=== PATIENT | male | born 1980 | race Caucasian/White ===

== ENCOUNTER 2017-08-02 17:18 | Emergency (ER) | payer SELFPAY ==
[2017-08-02] MEDS ORDERED: Water For Inject, Bacteriostat 30 ML ONE (18:24)
[2017-08-02] MEDS ORDERED: methylPREDNISolone Sod Succ/PF 125 MG/2 ML VIAL ONE (18:24)
[2017-08-02] MEDS ORDERED: Ketorolac Tromethamine 60 MG/2 ML VIAL ONE (18:57)
[2017-08-02] MEDS ORDERED: Oxymetazoline HCl 0.05% ( 15 ML ) ONE (18:57)
--- NOTE | 2017-08-02 19:33 | RAD ---
CHEST TWO VIEWS: History: Dyspnea. Comparison: 05-23-16 FINDINGS: Cardiac silhouette and pulmonary vasculature are unremarkable. Mediastinum is midline. Lungs remain h yperinflated. There is no confluent airspace consolidation, pneumothorax, or pleural fluid evident. IMPRESSION: COPD. POS: STEPHEN
== END 2017-08-02 19:35 | disposition home or self-care (01) ==
LOC: ERS 17:18
DX: J45.901 Unspecified asthma with (acute) exacerbation (principal); J44.9 Chronic obstructive pulmonary disease, unspecified; I10 Essential (primary) hypertension; F17.210 Nicotine dependence, cigarettes, uncomplicated
CPT/HCPCS: 71020; 87081; 87430; 93005; 94640; 96372; J1885; J2930; J7620

== ENCOUNTER 2020-10-11 09:52 | Inpatient (IN) | payer MEDICARE, MEDICAID ==
[2020-10-11] MEDS ORDERED: Morphine 4 MG/ML VIAL ONE ×2 (10:48→12:22)
--- NOTE | 2020-10-11 11:21 | RAD ---
XR Knee Rt 4 View STANDARD HISTORY: Fall, right knee pain FINDINGS: No fracture or dislocation is identified.
--- NOTE | 2020-10-11 11:22 | RAD ---
Exam:Left foot 3 HISTORY: Pain. Fall. COMPARISON: 08/10/2015 FINDINGS: Lisfranc alignment is maintained. Preserved joint spaces. No fracture, cortical irregularit y or periosteal reaction. There is soft tissue swelling. IMPRESSION: Soft tissue swelling, without evidence of fracture.
--- NOTE | 2020-10-11 11:22 | RAD ---
Exam:3 views right ankle HISTORY: Fall. Pain. COMPARISON: None FINDINGS: Comminuted distal fibula fracture. Widening of the medial joint space. Subluxation of the t alotibial articulation. IMPRESSION: Fracture and subluxation as above
--- NOTE | 2020-10-11 11:23 | RAD ---
Exam:Right tibia fibula 2 views HISTORY: Fall. Pain. COMPARISON: None FINDINGS: Comminuted distal fibular fracture. Additional fractures are not appreciated. IMPRESSION: Fracture
[2020-10-11] MEDS ORDERED: Ketorolac Tromethamine 30 MG/ML VIAL ONE (12:43)
[2020-10-11] MEDS ORDERED: Clindamycin/D5W 900 MG in Premix Bag 1 BAG IVPB SCH (12:45)
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
--- NOTE | 2020-10-11 13:03 | RAD ---
Portable frontal chest radiograph: 10/11/2020 COMPARISON: 08/15/2016 HISTORY: Recent fall, trauma, pain FINDINGS: Lungs are clear. Heart and mediastinal contours appear within normal limits. Detailed asses sment is limited secondary to body habitus IMPRESSION: No acute findings.
--- NOTE | 2020-10-11 13:07 | RAD ---
EXAM: 2 views of the left ankle HISTORY: Distal fibular fracture COMPARISON: 10/11/2020 FINDINGS: 2 views of the left ankle shows a fracture of the distal fibula. An overlying fiberglass sp lint obscures fine bony and soft tissue detail. IMPRESSION: Stable distal fibular fracture
[2020-10-11 13:21] LABS: #Eosinphils 0.1 thou/uL (0.0-0.7); #Lymphocytes 0.8 thou/uL (1.20-3.40); #Monocytes 0.8 thou/uL (0.11-0.59); #Neutrophils 7.6 thou/uL (1.40-6.50); %Basophils 0.1 % (0.0-1.0); %Eosinophils 1.5 % (0.0-10.0); %Lymphocytes 8.4 % (21.0-51.0); %Monocytes 8.2 % (0.0-10.0); %Neutrophils 81.8 % (42.0-75.0); Hemoglobin 11.7 g/dL (14.0-18.0); Mean Corpuscular HGB CONC 31.9 g/dL (32.0-36.0); Mean Corpuscular Hemoglobin 27.6 pg (27.0-31.0); Mean Corpuscular Volume 86.6 fL (78.0-98.0); Mean Platelet Volume 7.6 fL (7.4-10.4); Platelet Count 283 thou/uL (130-400); RBC Distribution Width 16.7 % (11.5-14.5); Red Blood Cell (RBC) Count 4.23 mill/uL (4.70-6.10); White Blood Cell (WBC) Count 9.2 thou/uL (4.8-10.8)
[2020-10-11 13:31] LABS: Prothrombin Time 13.7 sec (12.0-14.7)
[2020-10-11 13:32] LABS: PTT 34.8 sec (22.9-36.1)
[2020-10-11 13:43] LABS: ALT (SGPT) 46 U/L (8-55); AST (SGOT) 71 U/L (5-34); Albumin 3.8 g/dL (3.5-5.0); Alkaline Phosphatase 71 U/L (40-110); Anion Gap 14 mmol/L (10-20); BUN (Urea Nitrogen) 12 mg/dL (8.9-20.6); Bilirubin, Total 0.6 mg/dL (0.2-1.2); CK (CPK) 3149 U/L (30-200); Calc. Creatinine Clearance 0 mL/min (70-130); Calcium 8.8 mg/dL (7.8-10.44); Carbon Dioxide 31 mmol/L (22-29); Chloride 91 mmol/L (98-107); Globulin 3.2 g/dL (2.4-3.5); Glucose 101 mg/dL (70-105); Potassium 4.5 mmol/L (3.5-5.1); Sodium 131 mmol/L (136-145)
[2020-10-11] MEDS ORDERED: Dextrose 50% Abboject 50 ML SYRINGE SLOW IVP PRN (14:50)
[2020-10-11] MEDS ORDERED: Ondansetron PF 4 MG/2 ML Vial IVP PRN (14:50)
[2020-10-11] MEDS ORDERED: Dextrose 5% in Water 1,000 ML IV PRN (14:50)
[2020-10-11] MEDS: Acetaminophen 500 MG TAB PO SCH (17:49)
[2020-10-11] MEDS: Cyclobenzaprine 10 MG TAB PO PRN (17:49)
[2020-10-11] MEDS: traMADol HCl 50 MG TAB PO PRN (17:51)
[2020-10-11 18:52] VITALS: BMI 66.4
[2020-10-11] MEDS: Gabapentin 300 MG CAP PO SCH ×2 (19:35→21:17)
[2020-10-11] MEDS: Sodium Chloride 0.9% 1,000 ML IV SCH ×2 (21:15→22:23)
[2020-10-11] MEDS: Famotidine 20 MG TAB PO SCH (21:16)
[2020-10-11] MEDS: Ibuprofen 200 MG TAB PO SCH (21:16)
[2020-10-11] MEDS: Senokot S 8.6-50 MG TAB PO SCH (21:17)
[2020-10-11 22:03] LABS: Bacteria/HPF 4+ HPF (None Seen); Bilirubin Negative (Negative); Blood, Urine 3+ (Negative); Clarity Extra Turbid (Clear); Glucose, Urine (Dipstick) Normal (Negative); Ketone, Urine 40 mg/dL (Negative); Leukocyte 500 Leu/uL (Negative); Nitrite Negative (Negative); Protein, Urine (Dipstick) 70 mg/dL (Neg-Trace); RBC/HPF Greater than 50 HPF (0-3); Specific Gravity, Urine 1.033 (1.002-1.036); Squamous Epithelial None Seen HPF (0-3); WBC/HPF Greater than 50 HPF (0-3)
--- NOTE | 2020-10-11 22:34 | HP ---
TRAUMA SURGEON: Dr. Brown. CONSULTING PHYSICIAN: Dr. Dominguez. HISTORY OF PRESENT ILLNESS: The patient is a 40-year-old male, who presented to the emergency department via EMS after mechanical fall. The patient reports during night, he woke up to go to the restroom and did not use his walker, subsequently he fell. He is complaining of right lower extremity pain, who was evaluated by Orthopedic Surgery, who recommends surgical fixation of the right distal fibular fracture/ankle fracture. Upon my evaluation, the patient was reporting he is short of breath. He does have COPD and is on 3 L nasal cannula at home. He is 204 kg and typically has issues getting around that is why he uses a walker. He lives at home with his . He denies chest pain, nausea, vomiting, cough, or diarrhea. REVIEW OF SYSTEMS: All additional 10-point review of systems is negative except as indicated above. PAST MEDICAL HISTORY: KACIE; COPD, on home O2 at 3 L; hypertension; and previous pinched nerve in back. PAST SURGICAL HISTORY: Hernia repair. SOCIAL HISTORY: The patient denies drug or alcohol use. He smokes a half a pack of cigarettes a day. MEDICATIONS: The patient not aware of his medications. We will call the pharmacy to complete a med rec. On evaluation of previous records, the patient is on, 1. Symbicort. 2. Lisinopril/hydrochlorothiazide. 3. Lyrica. 4. Motrin. 5. Tylenol No. 3. 6. Fluconazole. 7. Wellbutrin. 8. Carvedilol. 9. Lipitor. ALLERGIES: PENICILLIN AND SULFA DRUGS. OBJECTIVE: VITAL SIGNS: Temperature 98.6, pulse 96, respirations 22, oxygen saturation 99% on room air, and blood pressure 129/73. PRIMARY SURVEY: Airway intact. Adequate breath sounds bilaterally. 2+ pulses in bilateral radials, femorals, and DPs. GCS 15. Gross motor and sensation are intact. No lacerations, bruising, or external bleeding. SECONDARY SURVEY: HEAD: Normocephalic. No gross palpable skull deformities or tenderness. EYES: Pupils 3-2, equal, round, reactive to light bilaterally. ENT: No hemotympanum. No epistaxis. No septal hematoma. Midface stable to manipulation. No blood in the oropharynx. Dentition is intact. C-SPINE: No step-offs or deformities. Nontender. C-collar not in place. CHEST: Nontender. No abrasions. No ecchymosis noted. Equal chest movement. ABDOMEN: Soft, nontender, nondistended. PELVIS: Stable to palpation. Nontender. RECTAL: Deferred. GENITOURINARY: Deferred. EXTREMITIES: The patient has a splint to the right lower extremity that is clean, dry, and intact. No signs of bleeding. 2+ pulses in bilateral radials, femorals, and DPs. BACK/SPINE: No signs of trauma. 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 Gross normal sensation x4 extremities. LABORATORY FINDINGS: White count 9.2, hemoglobin 11.7, hematocrit 36.6, platelets 283. INR 1.0, sodium 131, potassium 4.5, chloride 91, bicarb 31, BUN 12, creatinine 0.74, glucose 101, total bilirubin 0.6, AST 71, ALT 46, alkaline phosphatase 71. CK 3149. DIAGNOSTIC FINDINGS: X-ray of the right ankle demonstrates fracture and subluxation of the comminuted distal fibular fracture. X-ray of the right knee demonstrates no fracture or dislocation is identified. X-ray of the right foot demonstrates soft tissue swelling without evidence of fracture. X-ray of the right tib-fib demonstrates comminuted displaced fibular fracture. Chest x-ray demonstrates no acute findings. X-ray of the left ankle demonstrates stable distal fibular fracture. ASSESSMENT: 1. Status post mechanical fall from standing. 2. Right distal fibular fracture. 3. Rhabdomyolysis. 4. History of chronic obstructive pulmonary disease, hypertension, and obstructive sleep apnea. PLAN: The patient is admitted to the Trauma Service. Orthopedic Surgery has evaluated the patient and plans to take the patient to the OR tomorrow. In the emergency department, I have asked the emergency provider to give him a nebulizer. He will be admitted to [facility]. He will receive IV fluid hydration and have a regular diet. We will closely monitor his urinary output and repeat a CK in the morning. Postoperatively, the patient will likely need placement in acute rehab facility. Job ID: [id number]
[2020-10-12] MEDS: Acetaminophen 500 MG TAB PO SCH ×5 (00:01→23:07)
[2020-10-12] MEDS: traMADol HCl 50 MG TAB PO PRN ×2 (00:02→19:23)
[2020-10-12] MEDS: Morphine 4 MG/ML VIAL SLOW IVP PRN ×4 (00:42→23:44)
[2020-10-12 05:14] LABS: #Basophils 0.1 thou/uL (0.0-0.2); #Eosinphils 0.2 thou/uL (0.0-0.7); #Lymphocytes 1.1 thou/uL (1.20-3.40); #Monocytes 0.9 thou/uL (0.11-0.59); #Neutrophils 5.9 thou/uL (1.40-6.50); %Eosinophils 2.1 % (0.0-10.0); %Lymphocytes 13.5 % (21.0-51.0); %Monocytes 11.4 % (0.0-10.0); %Neutrophils 72.1 % (42.0-75.0); Mean Corpuscular HGB CONC 31.9 g/dL (32.0-36.0); Mean Corpuscular Hemoglobin 27.3 pg (27.0-31.0); Mean Corpuscular Volume 85.8 fL (78.0-98.0); Mean Platelet Volume 7.8 fL (7.4-10.4); Platelet Count 243 thou/uL (130-400); RBC Distribution Width 16.8 % (11.5-14.5); Red Blood Cell (RBC) Count 4.01 mill/uL (4.70-6.10); White Blood Cell (WBC) Count 8.2 thou/uL (4.8-10.8)
[2020-10-12] MEDS: Ibuprofen 200 MG TAB PO SCH ×3 (05:20→23:43)
[2020-10-12 05:41] LABS: Anion Gap 13 mmol/L (10-20); BUN (Urea Nitrogen) 13 mg/dL (8.9-20.6); CK (CPK) 2528 U/L (30-200); Calc. Creatinine Clearance 397 mL/min (70-130); Calcium 8.6 mg/dL (7.8-10.44); Carbon Dioxide 33 mmol/L (22-29); Chloride 93 mmol/L (98-107); Glucose 81 mg/dL (70-105); Magnesium 1.9 mg/dL (1.6-2.6); Phosphorus 3.4 mg/dL (2.3-4.7); Potassium 4.6 mmol/L (3.5-5.1); Sodium 134 mmol/L (136-145)
[2020-10-12] MEDS: Sodium Chloride 0.9% 1,000 ML IV SCH ×3 (06:02→15:51)
[2020-10-12] MEDS ORDERED: FLU VACC QS2020-21(6MOS UP)/PF 60 MCG/0.5 ML SYRINGE IM ONE (09:00)
[2020-10-12 09:48] LABS: SARS-CoV-2 PCR by NAA Not Detected (NotDetected)
[2020-10-12] MEDS: Famotidine 20 MG TAB PO SCH ×2 (10:16→23:06)
[2020-10-12] MEDS: Senokot S 8.6-50 MG TAB PO SCH ×2 (10:17→23:07)
[2020-10-12] MEDS: Polyethylene Glycol 3350 17 GM Packet PO SCH (10:17)
[2020-10-12] MEDS: Gabapentin 300 MG CAP PO SCH ×3 (10:17→23:06)
[2020-10-12] MEDS ORDERED: Succinylcholine 200 MG/10 ml SYRINGE FS ONE (10:54)
[2020-10-12] MEDS ORDERED: Dexamethasone 20 MG/5 ML VIAL ONE (10:54)
[2020-10-12] MEDS ORDERED: PROPOFOL 200 MG/20 ML VIAL ONE (10:54)
[2020-10-12] MEDS ORDERED: Lidocaine 1% PF 5 ML VIAL ONE (10:54)
[2020-10-12] MEDS ORDERED: Bupivacaine HCl 0.5%/Epinephrine 1:200,000/PF 30 ml Vial ONE (10:54)
[2020-10-12] MEDS ORDERED: Ondansetron PF 4 MG/2 ML Vial ONE (10:54)
[2020-10-12] MEDS ORDERED: Rocuronium Bromide 10 MG/ML (10ML VIAL) ONE (10:54)
[2020-10-12] MEDS ORDERED: Clindamycin/D5W 900 mg/50 ml Premix Bag ONE (11:47)
[2020-10-12] MEDS ORDERED: Sodium Chloride 0.9% 0 ML ONE (11:47)
[2020-10-12] MEDS ORDERED: Fentanyl 100 MCG/2 ML VIAL ONE (12:15)
[2020-10-12] MEDS ORDERED: Albuterol Sulfate HFA (OR ONLY) ONE (12:43)
[2020-10-12] MEDS ORDERED: EPINEPHrine 1 MG/10 ML Abboject SYRINGE ONE (12:55)
[2020-10-12] MEDS ORDERED: SUGAMMADEX SODIUM 500 MG/5 ML VIAL ONE (13:16)
[2020-10-12] MEDS ORDERED: Propofol 1,000 MG/100 ML VIAL IV ONE (13:35)
--- NOTE | 2020-10-12 13:58 | RAD ---
RIGHT ANKLE THREE VIEW: 10/12/20 HISTORY: ORIF of the fibula. COMPARISON: Right ankle radiograph prior day. FINDINGS: Two cortical syndesmotic screws to the distal fibula. IMPRESSION: Satisfactory postoperative appearance. POS: OFF
[2020-10-12 14:06] LABS: Actual Bicarbonate (HCO3a) 28.6 mEq/L (22-28); Base Excess (BEa) 1.5 mEq/L (-2.0 to +3.0); CO2 Tension 57.5 mmHg (35.0-45.0); Calcium, Ionized (arterial) 1.11 mmol/L (1.12-1.30); Carboxyhemoglobin (COHb) 0.9 gm% (0.0-3.0); Potassium - ABG Lab 4.28 mmol/L (3.70-5.30); pH, Arterial 7.31 (7.35-7.45)
[2020-10-12 14:17] LABS: ALV-art Gradient 139.325 mmHg (0-20); Puncture Site RRA
[2020-10-12] MEDS ORDERED: hydrALAZINE 20 MG/ML VIAL ONE ×2 (14:18→17:42)
--- NOTE | 2020-10-12 14:21 | RAD ---
CHEST ONE VIEW: 10/12/20 HISTORY: Endotracheal tube tip placement. COMPARISON: Radiograph prior day. FINDINGS: Severely poor penetration. Endotracheal tube tip is seen to the level of the clavicles and just below possibly above the nette 2.8 cm. Heart size is enlarged. Mild pulmonary venous congestion. IMPRESSION: Underpenetrated exam. Endotracheal tube above the nette possibly 2.8 cm. A repeat exam is recommende d with better penetration. POS: OFF
[2020-10-12] MEDS ORDERED: Labetalol HCl 100 MG/20 ML VIAL ONE (15:01)
[2020-10-12] MEDS ORDERED: Labetalol HCl 100 MG/20 ML VIAL SLOW IVP PRN (15:28)
[2020-10-12] MEDS ORDERED: hydrALAZINE 20 MG/ML VIAL SLOW IVP PRN (15:29)
--- NOTE | 2020-10-12 16:05 | OP ---
DATE OF PROCEDURE: 10/12/2020 PREOPERATIVE DIAGNOSIS: Right ankle distal fibula fracture with syndesmotic disruption. POSTOPERATIVE DIAGNOSIS: Right ankle distal fibula fracture with syndesmotic disruption. PROCEDURE PERFORMED: Closed reduction and syndesmotic screw stabilization of ankle mortise. ANESTHESIA: General. RADIOLOGICAL EQUIPMENT SPECIALIST: Rubio Cavazos PA-C TOURNIQUET TIME: Zero. IMPLANTS: Synthes 4.0-mm cortical screws x2. COMPLICATIONS: None. DRAINS: None. SPECIMENS: None. OUTCOME: Satisfactory. INDICATIONS: The patient is a 40-year-old gentleman with morbid obesity, who sustained a fall, fracturing his distal fibular shaft and disrupting the ankle mortise. The patient now taken to the operating room for surgical stabilization of this fracture. The patient is in extremely poor health and does have morbid obesity. I discussed with the patient risks and benefits. He appears to understand and does wish to proceed. DESCRIPTION OF PROCEDURE: After the induction of general anesthesia, the patient was positioned supine on the OR table, but at this point was found to have extreme difficulty ventilating the patient. My anesthesiologist was very concerned regarding this inability to ventilate the patient easily. With further care from the anesthesiologist and anesthesia team, the patient's breathing did stabilize and the oxygenation was able to be pursued in a more normal fashion. However, given this somewhat tenuous pulmonary status, the surgery was slightly altered and it was decided not to proceed with plating of the fibula, but rather just stabilization of the mortise so as to get the patient out of the operating room as quickly as possible. As such, a sterile prep and drape was performed of the right lower extremity. Next, a small incision was made over the medial malleolus and a second incision made laterally over the lateral malleolus. A large bone tenaculum was then used to reduce the ankle mortise by my assistant office manager. This was checked on both AP, mortise, and lateral x-rays. Once reduced, and while my assistant office manager maintained reduction of the fracture, a 3rd small incision was made laterally just proximal to the first and then a drill passed through both cortices of the fibula as well as both cortices of the distal tibia. Measurement was taken and then appropriate length 4.0-mm cortical screw was passed across to the fibula into the tibia, getting good stabilization of the ankle mortise. The bone tenaculum was then removed and a 2nd screw placed at this distal lateral incision in identical fashion. At the completion of this, AP, lateral, and mortise images showed an anatomically reduced ankle mortise and a fibular shaft fracture that actually was near anatomically aligned as well. As such, it was opted to stop the procedure at this point. The 3 small stab wounds were irrigated with bulb syringe, then closed with janice. Xeroform gauze, Webril, and posterior fiberglass splint was then applied to the ankle and the patient was transferred to recovery room while still on a ventilator. Job ID: [id number] MTDD
[2020-10-12] MEDS ORDERED: Morphine 4 MG/ML VIAL ONE ×2 (17:13→23:42)
[2020-10-12] MEDS: hydrALAZINE 20 MG/ML VIAL SLOW IVP PRN ×2 (17:43→19:43)
[2020-10-12] MEDS ORDERED: Acetaminophen 500 MG TAB ONE (19:11)
[2020-10-12] MEDS ORDERED: traMADol HCl 50 MG TAB ONE (19:12)
[2020-10-12] MEDS ORDERED: Cyclobenzaprine 10 MG TAB ONE (19:12)
[2020-10-12] MEDS: Cyclobenzaprine 10 MG TAB PO PRN (19:22)
[2020-10-12] MEDS: Clindamycin/D5W 900 MG in Premix Bag 1 BAG IVPB SCH (19:25)
[2020-10-12] MEDS ORDERED: Gabapentin 300 MG CAP ONE (21:41)
[2020-10-12] MEDS ORDERED: Famotidine 20 MG TAB ONE (21:41)
--- NOTE | 2020-10-12 22:29 | PRG ---
DATE OF SERVICE: 10/12/2020 SUBJECTIVE: The patient is hospital day #2 status post ground level fall, in which he sustained a right ankle fracture. Today, he underwent open reduction and internal fixation of same. During his operative case, Anesthesia noted that the patient started having significant bronchospasms requiring aerosolized epinephrine and albuterol. The patient remained intubated postoperatively as the case went otherwise as expected. In the PACU, the patient was evaluated by Dr. Brown, who was eventually able to extubate the patient as his respirations were spontaneous. He had no air leak and his lung sounds were clear. The patient does have CPAP ordered for this evening due to his sleep apnea and BiPAP as needed. Otherwise, the patient did well. Again, this evening, he was checked. He was having some hypertension issues that resolved with hydralazine and we resumed his pain medication. This will most likely help significantly. His oxygen saturation stayed in the high 90s to 100 while on BiPAP. PHYSICAL EXAMINATION: VITAL SIGNS: Current vital signs; temperature 98.0, heart rate 93, blood pressure 134/76, respirations 16, oxygen on BiPAP, FiO2 is 30%. GENERAL: The patient is resting comfortably in the PACU. He is currently in IMCU status. HEENT: He will open his eyes to loud verbal commands and will give me a thumbs up. LUNGS: His respirations appear nonlabored. They are clear to auscultation bilaterally. HEART: Regular rate and rhythm. ABDOMEN: Soft without peritoneal signs with hypoactive bowel sounds. EXTREMITIES: Neurovascularly intact x4. Right lower extremity has a well-padded splint. He has motor movement with decreased sensation at this time. LABORATORY DATA: This morning show a white blood cell count 8.2, hemoglobin 11.0, hematocrit 34.4, platelets 243. Sodium 134, potassium 4.6, chloride 93, CO2 of 33, BUN 13, creatinine 0.70, glucose 81, creatine kinase 2528, magnesium 1.9, phosphorus 3.4. There are no radiographs to review. ASSESSMENT: 1. Status post ground level fall. 2. Status post open reduction and internal fixation of right distal fibular fracture with widening of the mortise. 3. Acute bronchospasms, relieved with bronchodilators. 4. Obstructive sleep apnea. PLAN: Plan will be to continue close monitoring. BiPAP and CPAP as directed. Begin oral pain medications, diet. Tomorrow, start Physical and Occupational therapy. The patient will most likely be able to be transferred back to the surgical floor tomorrow if he continues to have an uneventful night. Again, the patient was evaluated in the postanesthesia care unit with Dr. Brown. Job ID: [id number]
[2020-10-12] MEDS: Nystatin 500,000 UNITS/5 ML UDCUP SSW SCH (23:07)
[2020-10-13] MEDS: Sodium Chloride 0.9% 1,000 ML IV SCH (00:20)
[2020-10-13] MEDS: Clindamycin/D5W 900 MG in Premix Bag 1 BAG IVPB SCH ×2 (04:15→11:40)
[2020-10-13] MEDS ORDERED: Acetaminophen 500 MG TAB ONE ×2 (07:10→11:38)
[2020-10-13] MEDS: Ibuprofen 200 MG TAB PO SCH ×3 (07:10→21:10)
[2020-10-13] MEDS: Acetaminophen 500 MG TAB PO SCH ×2 (07:15→11:40)
[2020-10-13] MEDS ORDERED: Famotidine 20 MG TAB ONE (08:07)
[2020-10-13] MEDS ORDERED: Gabapentin 300 MG CAP ONE ×2 (08:07→13:56)
[2020-10-13] MEDS ORDERED: Enoxaparin Sodium 40 MG/0.4 ML SYRINGE ONE (09:11)
[2020-10-13] MEDS: Famotidine 20 MG TAB PO SCH ×2 (09:13→21:11)
[2020-10-13] MEDS: Enoxaparin Sodium 40 MG/0.4 ML SYRINGE SC SCH ×2 (09:13→21:10)
[2020-10-13] MEDS: Gabapentin 300 MG CAP PO SCH (09:13)
[2020-10-13] MEDS: Nystatin 500,000 UNITS/5 ML UDCUP SSW SCH ×4 (09:14→21:10)
[2020-10-13] MEDS ORDERED: Lisinopril 10 MG TAB ONE (09:15)
[2020-10-13] MEDS: Polyethylene Glycol 3350 17 GM Packet PO SCH (09:16)
[2020-10-13] MEDS: Lisinopril 10 MG TAB PO SCH (09:16)
[2020-10-13] MEDS: Senokot S 8.6-50 MG TAB PO SCH ×2 (09:16→21:11)
[2020-10-13] MEDS: traMADol HCl 50 MG TAB PO PRN ×2 (09:16→11:47)
[2020-10-13] MEDS ORDERED: traMADol HCl 50 MG TAB ONE ×3 (09:19→11:46)
--- NOTE | 2020-10-13 09:26 | PQF ---
CLINICAL DOCUMENTATION CLARIFICATION FORM: Dear Dr. BOB RODRÍGUEZ, ALESSIO Date: 10-13-20 Please exercise your independent, professional judgment in responding to the clarification form. Clinical indicators are provided on the bottom of this form for your review. Please check appropriate box(es): [ ] Chronic Respiratory Failure only [ ] with Hypoxia [ ] with Hypercapnia [ ] Hypoxia [ X ] Other diagnosis ___OSA [ ] Unable to determine In addition, please specify: Present on Admission (POA): [ X ] Yes [ ] No [ ] Unable to determine For continuity of documentation, please document condition throughout progress notes and discharge summary. Thank You. To be completed by CDI/Coding staff for physician review: CLINICAL INDICATORS - SIGNS / SYMPTOMS / LABS / RESULTS AND LOCATION IN MR: ER NOTES 10-11-20: HX COPD, ASTHMA, HTN, HLP, DM 2, ANXIETY, DEPRESSION, SMOKER BMI: 10-11-20: 66.4 H&P 10-11-20: HE DOES HAVE COPD AND IS ON 3L NASAL CANNULA AT HOME RISK FACTORS / RESULTS AND LOCATION IN MR: H&P 10-11-20: HE DOES HAVE COPD AND IS ON 3L NASAL CANNULA AT HOME TREATMENTS / RESULTS AND LOCATION IN MR: ANNE PN 10-12-20: ON BIPAP, FIO2 IS 30%, BIPAP AND CPAP DIRECTED Acute Respiratory Failure: ABG pH < 7.35 or > 7.45; Decreased oxygen saturation (<90% room air or < 95% on oxygen); PCO2 > 50 mm Hg; PO2 < 60 mm Hg; Labored or rapid respirations ARDS: Dx Criteria [[place] ARDS]: Respiratory symptoms within one week of a known clinical insult (e.g. shock, infection, surgery, trauma) Bilateral opacities in CXR/Chest CT not due to CHF or fluid CDS Signature: Bess Gomez Phone #: [phone] Date: 10-13-20 This is a permanent part of the Medical Record [facility]
--- NOTE | 2020-10-13 09:42 | PQF ---
CLINICAL DOCUMENTATION CLARIFICATION FORM: Dear Dr. BOB RODRÍGUEZ, MARKC Date: 10-13-20 Please exercise your independent, professional judgment in responding to the clarification form. Clinical indicators are provided on the bottom of this form for your review. Please check appropriate box(es): [ X ] UTI [ ] Contaminated urine specimen without UTI [ ] Other diagnosis [ ] Unable to determine In addition, please specify: Present on Admission (POA): [ ] Yes [ ] No [ ] Unable to determine For continuity of documentation, please document condition throughout progress notes and discharge summary. Thank You. To be completed by CDI/Coding staff for physician review: CLINICAL INDICATORS - SIGNS / SYMPTOMS / LABS / RESULTS AND LOCATION IN MR: URINE: 10-11-20: URINE CLARITY: EXTRA TURBID A URINE PROTEIN: 70 A URINE BLOOD: 3+ A UR LEUKOCYTE ESTERASE: 500 A URINE WBC: GREATER THAN 50 A URINE BACTERIA: 4+ A TEMP: 10-13-20: 99.9 RISK FACTORS / RESULTS AND LOCATION IN MR: H&P 10-11-20: HX KACIE, COPD, ON HOME O2 AT HOME, SMOKER, HTN, PREVIOUS PINCHED NERVE IN BACK CONSULT NOTE 10-12-20: MORBIDLY OBESE TREATMENT / RESULTS AND LOCATION IN MR: MAR: 10-12-20: CLEOCIN IVF, NS IVF CDS Signature: Bess Gomez Phone #: [phone] Date:10-13-20 This is a permanent part of the Medical Record [facility]
[2020-10-13] MEDS ORDERED: Clindamycin/D5W 900 mg/50 ml Premix Bag ONE (11:38)
[2020-10-13] MEDS: traMADol HCl 50 MG TAB PO SCH ×3 (11:41→23:45)
[2020-10-13] MEDS ORDERED: Sodium Chloride 0.9% 10 ML ONE (12:04)
[2020-10-13] MEDS ORDERED: Acetaminophen/Codeine 30-300mg Tablet PO PRN (12:43)
--- NOTE | 2020-10-13 14:42 | PRG ---
DATE OF SERVICE: 10/13/2020 SUBJECTIVE: Mr. Coy is a 40-year-old morbidly obese man, BMI of 66. The patient is postoperative day #1, status post closed reduction and screw stabilization of the ankle fracture. He has a history of severe obstructive sleep apnea and was extubated a few hours after surgery. He has been poorly compliant with his BiPAP to sleep and so this morning the patient is quite somnolent, but awakens to deep voice. He is falling asleep even while this visit was being conducted and this is not related to any opioid analgesics. Patient, however, moves all extremities when awake and follows commands. OBJECTIVE: VITAL SIGNS: This morning on evaluation included blood pressure 133/77, pulse is 74, respiratory rate is 20, maximum temperature in last 24 hours is 99.9 degrees Fahrenheit, oxygen saturation this morning 100% on FiO2 of 3% by nasal cannula oxygen. HEART: Regular rate and rhythm. LUNGS: Diminished basilar breath sounds. Breathing otherwise regular and nonlabored. ABDOMEN: Soft and obese. NEUROLOGIC: No focal deficits present. IMPRESSION: Postop day #1 1. Status post closed reduction of ankle fracture. 2. History of severe obstructive sleep apnea and Pickwickian syndrome, stable. 3. Morbid obesity PLAN: 1. Increase activity per Physical and Occupational therapy. 2. Initiate discharge planning to possible inpatient rehabilitation versus home with physical therapy. Job ID: [id number] MTDD
[2020-10-13] MEDS ORDERED: Acetaminophen/Codeine 30-300mg Tablet ONE (15:23)
[2020-10-13] MEDS: Acetaminophen/Codeine 30-300mg Tablet PO PRN ×2 (15:38→21:12)
[2020-10-13] MEDS: Acetaminophen 325 MG TAB PO SCH ×2 (18:23→23:45)
[2020-10-13] MEDS: Nicotine 14 MG PATCH TD SCH (18:25)
[2020-10-13] MEDS: Cyclobenzaprine 10 MG TAB PO PRN (19:00)
[2020-10-13] MEDS: Pregabalin 75 MG CAP PO SCH (21:11)
[2020-10-14] MEDS: Sodium Chloride 0.9% 1,000 ML IV SCH (05:34)
[2020-10-14] MEDS: Ibuprofen 200 MG TAB PO SCH ×3 (05:59→20:35)
[2020-10-14] MEDS: traMADol HCl 50 MG TAB PO SCH ×3 (06:00→17:48)
[2020-10-14] MEDS: Acetaminophen 325 MG TAB PO SCH ×3 (06:01→17:47)
[2020-10-14] MEDS: Senokot S 8.6-50 MG TAB PO SCH ×2 (08:44→20:34)
[2020-10-14] MEDS: Lisinopril 10 MG TAB PO SCH (08:44)
[2020-10-14] MEDS: Polyethylene Glycol 3350 17 GM Packet PO SCH (08:44)
[2020-10-14] MEDS: Famotidine 20 MG TAB PO SCH ×2 (08:45→20:34)
[2020-10-14] MEDS: Nystatin 500,000 UNITS/5 ML UDCUP SSW SCH ×4 (08:45→20:42)
[2020-10-14] MEDS: Pregabalin 75 MG CAP PO SCH ×2 (08:45→20:36)
[2020-10-14] MEDS: Enoxaparin Sodium 40 MG/0.4 ML SYRINGE SC SCH ×2 (08:45→20:43)
[2020-10-14] MEDS ORDERED: Tamsulosin HCl 0.4 MG CAP PO SCH ×2 (10:00→21:00)
--- NOTE | 2020-10-14 13:12 | EKG ---
Test Reason : PREOP Blood Pressure : / mmHG Vent. Rate : 084 BPM Atrial Rate : 084 BPM P-R Int : 156 ms QRS Dur : 118 ms QT Int : 416 ms P-R-T Axes : 076 086 071 degrees QTc Int : 491 ms Normal sinus rhythm with sinus arrhythmia Low voltage QRS Incomplete right bundle branch block Prolonged QT Abnormal ECG No previous ECGs available Confirmed by DR. Rafael OWUSU ([id number]) on 10/14/2020 1:12:03 PM Referred By: EDISON Confirmed By:DR. Rafael OWUSU
[2020-10-14] MEDS: Acetaminophen/Codeine 30-300mg Tablet PO PRN (13:19)
--- NOTE | 2020-10-14 16:58 | PDOC.DS.DS ---
Provider Date of Admission: 10/11/20 14:50 Date of Discharge: 10/14/20 Admitting Provider: Oscar Brown DO Consultations: Orthopedics Primary Care Physician: KIYA PCP PROVIDER Course Hospital Course: 40 y/o male with a pmhx of COPD, KACIE and HTN was brought to the ED after a mechanical fall. Orthopedic team was consulted and they recommend rt distal fibular repair. The patient was brought to the OR on 10/12 for closed reduction and syndemotic screw stabilization of ankle mortise. After the patient was brought out of the OR he remained intubated and developed bronchospasm. The patient was extubated in the PACU at 4:00pm by . The patient was placed on CPAP and monitored. The patient was non complaint with CPAP in the hospital and wasn't aware of home setting. 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 Patient was placed on DVT prophylaxis and all home med ication. PT/OT and case management involved in the patients care. Discharge to [facility]. Lab Results: 10/12/20 04:48 10/12/20 04:48 Microbiology - Entire Visit 10/11/20 21:30 Urine schulte catheter Urine Culture - Final NO GROWTH AT 36 HOURS Vitals: Vital Signs (12 hours) Temp Pulse Resp BP Pulse Ox 10/14/20 16:10 97.7 F 85 18 151/79 H 100 10/14/20 11:00 97.7 F 80 18 142/79 H 99 10/14/20 08:43 80 168/78 H 10/14/20 07:40 98.4 F 76 18 175/98 H 93 L 10/14/20 06:58 56 L 18 95 Weight Weight 449 lb 11.888 oz Physical Exam: The patient was seen and examined on the day of discharge. General Appearance: NAD, awake alert ENT: normocephalic atraumatic Neck: supple, symmetric, no JVD Respiratory: CTAB, no wheezes, no rales Cardiovascular: no murmur, no gallops, no rubs Extremities: no cyanosis, no clubbing, 1+ LE edema Neurological: cranial nerve grossly intact Musculoskeletal: generalized weakness Musculoskeletal - other findings: Right posteior splint in place PSYCH: normal affect, A&O x 3 Problem Assessment: 40 right distal fibular repair Plan of Treatment: Follow up up with at clinic. in 2-3 weeks. Time Spent in discharge related activities (mins): 35 Plan Home Medications: Medication Instructions Recorded Confirmed Type Albuterol Sulfate [Albuterol 2.5 mg NEB Q4H PRN 09/25/14 10/13/20 History Sulfate Neb] Acetaminophen [Tylenol Extra 1,000 mg PO Q6HR PRN #0 tab 09/26/14 10/11/20 Rx Strength] Budesonide-Formoterol [Symbicort 2 puff INH BID-RT #0 aer 09/26/14 10/13/20 Rx 160-4.5] Atorvastatin Calcium [Lipitor] 40 mg PO DAILY 10/11/20 10/13/20 History Pregabalin [Lyrica] 300 mg PO TID 10/11/20 10/13/20 History Sertraline HCl [Zoloft] 100 mg PO DAILY 10/11/20 10/13/20 History Aspirin 325 mg PO DAILY 10/13/20 10/13/20 History Carvedilol 6.25 mg PO BID 10/13/20 10/13/20 History Fluticasone Propionate [Flonase 50 mcg AC 10/13/20 10/13/20 History Allergy Relief] Ibuprofen 200 mg PO BID 10/13/20 10/13/20 History Lidocaine [Lidocaine 5% Ointment] 10/13/20 History Lisinopril/Hydrochlorothiazide AC 10/13/20 10/13/20 History [Lisinopril-Hctz 20-12.5 mg Tab] Menthol [Icy Hot] 10/13/20 History buPROPion HCl [Bupropion HCl Sr] 150 mg PO DAILY 10/13/20 10/13/20 History Acetaminophen W/ Codeine 1 tab PO Q6H PRN tab 10/14/20 Rx [Acetaminophen/Codeine #3] Acetaminophen [Tylenol Regular 650 mg PO Q6HR tab 10/14/20 Rx Strength] Cyclobenzaprine [Flexeril] 10 mg PO TID PRN tab 10/14/20 Rx Dextrose 50% 25 gm SLOW IVP PRN PRN syringe 10/14/20 Rx Allergies: Penicillins Allergy (Verified 11/30/19 11:34) Sulfa (Sulfonamide Antibiotics) Allergy (Verified 11/30/19 11:34) Discharge Instructions:: Maintain non-weight bearing status to right leg. Diet as tolerated. OK to shower, but keep dressing to right foot clean, dry and intact. Activity:: Orthopedic Limitations (NWB RLE) Nourishment:: Bariatric Diet Therapies:: Occupational Therapy, Physical Therapy Referrals: Miguel Ángel Dominguez MD [Active] - 14 Days (Call office to schedule follow-up appointment.) Disposition: REHAB FACILITY Quality CORE MEASURES:: N/A Addendum - Attending - Attending Attestation Date/Time: 10/15/20 [id number] I personally evaluated the patient and discussed the management with Dr. [] I agree with the History, Examination, Assessment and Plan documented above with any addition or exceptions noted below.
[2020-10-14] MEDS: Nicotine 14 MG PATCH TD SCH (17:48)
[2020-10-14 23:27] VITALS: BP 153/72; TEMP 97.8
--- NOTE | 2020-10-15 05:25 | PRG ---
DATE OF SERVICE: 10/14/2020 SUBJECTIVE: The patient is a 40-year-old male, who presented with right-sided fibular fracture, status post fall, ground level. Today, the patient reports that overall he is feeling well. He brought his home CPAP machine in and says that he wore it most of the night. He reports that he would wear the nasal CPAP better, but has not followed up with anyone about his CPAP outpatient. His CPAP was a zuhair gift and no one has told him about his settings. Otherwise, the patient has no acute concerns at this time. OBJECTIVE: VITAL SIGNS: Temperature 98.4 degrees, pulse 76, respiratory rate 18, O2 saturation 93% on CPAP, blood pressure 175/98. GENERAL: A 40-year-old male, who appears stated age, morbid obesity. HEENT: Atraumatic, normocephalic. PULMONARY: No acute respiratory distress. Equal chest rise and fall. Able to get to 2000 on incentive spirometer. MUSCULOSKELETAL: Able to move upper extremities freely, no obvious deformities. NEURO: A and O x3. No focal deficits. PSYCH: Mood and affect, appropriate and congruent. LABORATORY AND IMAGING STUDIES: No new laboratory studies to report and no new imaging to report. ASSESSMENT: 1. Postop day #2 status post closed reduction of ankle fracture. 2. History of severe obstructive sleep apnea and Pickwickian syndrome, stable. PLAN: Continue to work with Physical and Occupational Therapy, and work toward discharge likely to inpatient rehab facility versus correction facility. Discussed at length today the importance of using CPAP all night, and the importance of following up with outpatient provider to get appropriate settings. Job ID: [id number]
[2020-10-15] MEDS ORDERED: Tamsulosin HCl 0.4 MG CAP PO SCH (09:00)
== END 2020-10-14 22:05 | DRG 493 ==
LOC: ERS 09:52 → SURG A 14:50 → OBSVTOIN 14:50 → SURG A 16:00 → UNDOADMOB 16:00 → PACU-TCU 10-12 16:22 → SURG B 10-13 17:17
PROVIDERS: ADMIT Surgery; ATTEND Surgery
PROC: 0QSJ34Z Reposition Right Fibula with Internal Fixation Device, Percutaneous Approach (ICD-10-PCS; principal; 2020-10-12)
DX: S82.831A Other fracture of upper and lower end of right fibula, initial encounter for closed fracture (principal); M62.82 Rhabdomyolysis; N39.0 Urinary tract infection, site not specified; E66.2 Morbid (severe) obesity with alveolar hypoventilation; Z68.44 Body mass index [BMI] 60.0-69.9, adult; S93.491A Sprain of other ligament of right ankle, initial encounter; J44.9 Chronic obstructive pulmonary disease, unspecified; I10 Essential (primary) hypertension; E78.5 Hyperlipidemia, unspecified; E11.9 Type 2 diabetes mellitus without complications; F32.9 Major depressive disorder, single episode, unspecified; F41.9 Anxiety disorder, unspecified; F17.210 Nicotine dependence, cigarettes, uncomplicated; W18.30XA Fall on same level, unspecified, initial encounter; J98.01 Acute bronchospasm; Z88.0 Allergy status to penicillin; Z88.2 Allergy status to sulfonamides; Z79.51 Long term (current) use of inhaled steroids; Z79.899 Other long term (current) drug therapy; Z99.81 Dependence on supplemental oxygen
CPT/HCPCS: 29515; 36415; 36416; 36600; 51702; 71045; 76000; 80048; 80053; 81001; 82550; 82805; 83735; 84100; 85025; 85610; 85730; 87086; 87635; 93005; 93010; 94002; 94640; 94660; 96374; 96375; 96376; G0390; J0171; J0360; J1100; J1650; J1885; J1956; J2270; J2405; J2704; J3010; J3490; J7620; U0003; U0005

== ENCOUNTER 2020-10-16 18:14 | Emergency (ER) | payer MEDICAID, MEDICARE, SELFPAY ==
--- NOTE | 2020-10-16 18:51 | RAD ---
RADIOGRAPH CHEST 1 VIEW: DATE: 10/16/2020 HISTORY: 40-year-old male with altered mental status. Concern for aspiration. FINDINGS: The image is overexposed. The upper lung zones are very poorly visualized. There is an oblique platel donavan density at the left mid-lower lung zone consistent with subsegmental atelectasis. There is otherwise no gross evidence of consolidation. The lateral costophrenic angles are not effaced. IMPRESSION: 1) Limited study. 2) density on the left is favored to represent subsegmental atelectasis. 3) no other acute findings
[2020-10-16 19:09] LABS: #Eosinphils 0.4 thou/uL (0.0-0.7); #Lymphocytes 0.9 thou/uL (1.20-3.40); #Monocytes 0.6 thou/uL (0.11-0.59); #Neutrophils 5.4 thou/uL (1.40-6.50); %Basophils 0.2 % (0.0-1.0); %Eosinophils 5.2 % (0.0-10.0); %Lymphocytes 12.3 % (21.0-51.0); %Monocytes 8.2 % (0.0-10.0); %Neutrophils 74.1 % (42.0-75.0); Mean Corpuscular HGB CONC 31.9 g/dL (32.0-36.0); Mean Corpuscular Hemoglobin 27.9 pg (27.0-31.0); Mean Corpuscular Volume 87.6 fL (78.0-98.0); Mean Platelet Volume 7.2 fL (7.4-10.4); Platelet Count 287 thou/uL (130-400); RBC Distribution Width 16.3 % (11.5-14.5); Red Blood Cell (RBC) Count 4.31 mill/uL (4.70-6.10); White Blood Cell (WBC) Count 7.3 thou/uL (4.8-10.8)
[2020-10-16 19:30] LABS: ALT (SGPT) 40 U/L (8-55); AST (SGOT) 18 U/L (5-34); Albumin 3.5 g/dL (3.5-5.0); Alkaline Phosphatase 65 U/L (40-110); Anion Gap 11 mmol/L (10-20); BUN (Urea Nitrogen) 11 mg/dL (8.9-20.6); Bilirubin, Total 0.4 mg/dL (0.2-1.2); Calc. Creatinine Clearance 0 mL/min (70-130); Calcium 8.9 mg/dL (7.8-10.44); Carbon Dioxide 36 mmol/L (22-29); Chloride 91 mmol/L (98-107); Globulin 3.3 g/dL (2.4-3.5); Glucose 117 mg/dL (70-105); Potassium 5.1 mmol/L (3.5-5.1); Protein, Total 6.8 g/dL (6.0-8.3); Sodium 133 mmol/L (136-145)
== END 2020-10-16 22:43 ==
LOC: ERS 18:14
DX: R06.00 Dyspnea, unspecified (principal); J44.9 Chronic obstructive pulmonary disease, unspecified; I10 Essential (primary) hypertension; E78.5 Hyperlipidemia, unspecified; E11.9 Type 2 diabetes mellitus without complications; F17.210 Nicotine dependence, cigarettes, uncomplicated; Z79.899 Other long term (current) drug therapy
CPT/HCPCS: 36415; 71045; 80053; 85025; 93005